=== PATIENT | male | born 1995 | race Two or more races ===

== ENCOUNTER 2022-10-17 10:46 | Emergency (ER) | payer MEDICAID ==
[~2022-10-17] VITALS: Ht 170.2 cm; Wt 50.3 kg
[2022-10-17 10:59] VITALS: BP 129/69
[2022-10-17] MEDS ORDERED: CARB15DR12 EACH EAR (13:24)
[2022-10-17] MEDS ORDERED: CIPR7.5D9 OT (13:24)
--- NOTE | 2022-10-17 13:30 | NUR ---
Patient discharged to home in stable condition. Written and verbal after care instructions given. Patient verbalizes understanding of instruction.
== END 2022-10-17 13:30 | disposition home or self-care (01) ==
LOC: ER 10:49
DX: H61.22 Impacted cerumen, left ear (principal); Z79.899 Other long term (current) drug therapy
CPT/HCPCS: 99283; 69209; A6403